=== PATIENT | male | born 1945 | race Caucasian/White ===

== ENCOUNTER 2021-08-22 19:17 | Inpatient (IN) | payer MEDICARE, SELFPAY ==
[2021-08-22 19:38] VITALS: BP 158/82; PULSE 93; RESP 16; TEMP 36.8; O2SAT 94
--- NOTE | 2021-08-22 21:33 | ECG_ITS ---
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 Measurements Intervals [place] Rate: 72 P: 60 [place]: 193 QRS: -33 QRSD: 84 T: 46 QT: 373 QTc: 409 Interpretive Statements SINUS RHYTHM LEFT AXIS DEVIATION [QRS AXIS < -30] POSSIBLE RIGHT VENTRICULAR CONDUCTION DELAY [RSR (QR) IN V1/V2] No previous ECG available for comparison Electronically Signed On 08-23-2021 12:25:37 CDT by Jaime Carlos M.D. [id number]
--- NOTE | 2021-08-22 21:33 | XRR_ITS ---
PROCEDURE INFORMATION: Exam: XR Chest Exam date and time: 08/22/2021 9:48 PM Age: 76 years old Clinical indication: Angina; Additional info: Cp TECHNIQUE: Imaging protocol: Radiologic exam of the chest. Views: 1 view. COMPARISON: CR XR abdomen min 2V [id number] 02/05/2020 12:15 PM FINDINGS: Lungs: Calcified pulmonary nodule/nodules, consistent with prior granulomatous disease. Pleural spaces: Unremarkable. No pleural effusion. No pneumothorax. Heart/Mediastinum: Calcified lymph nodes are present, secondary to prior granulomatous disease. There is mild cardiomegaly. Bones/joints: Unremarkable. XR/XR chest 1V portable [id number] IMPRESSION: 1. Mild cardiomegaly. 2. No acute disease.
[2021-08-22 21:36] VITALS: BP 150/87; PULSE 79; RESP 18; O2SAT 93
[2021-08-22 21:38] LABS: Basophils # 0.1 10^3/uL (0.0-0.1); Basophils % 0.5 %; Eosinophils # 0.1 10^3/uL (0.0-0.8); Eosinophils % 1.2 %; Hematocrit 48.4 % (42.0-52.0); Hemoglobin 15.6 g/dL (11.7-16.6); Lymphocytes # 0.9 10^3/uL (0.8-4.8); Lymphocytes % 8.7 %; Mean Corpuscular HGB Conc 32.2 g/dL (30.0-36.0); Mean Corpuscular Hemoglobin 30.8 pg (28.0-34.0); Mean Corpuscular Volume 95.7 fl (80-94); Mean Platelet Volume 10.7 fL (7.4-10.4); Monocytes # 0.6 10^3/uL (0.2-0.9); Neutrophils # 8.82 10^3/uL (1.8-7.7); Neutrophils % 83.1 %; Nucleated Red Blood Cells % 0 %; Platelet Count 208 10^3/cmm (130-400); Red Blood Count 5.06 10^6/uL (4.1-5.3); Red Cell Distribution Width 13.7 % (12.1-15.1); White Blood Count 10.6 10^3/uL (4.0-10.0)
[2021-08-22 21:51] LABS: Troponin(5th) Baseline 75 ng/L (0-15)
[2021-08-22 21:54] LABS: Alanine Aminotransferase 17 U/L (0-41); Albumin Level 4.7 g/dL (3.5-5.2); Alkaline Phosphatase 100 IU/L (40-130); Anion Gap 19.3 (5-19); Aspartate Amino Transferase 24 U/L (0-40); Blood Urea Nitrogen 18 mg/dL (8-23); Calcium 9.1 mg/dL (8.5-10.5); Carbon Dioxide 23 mmol/L (22-29); Chloride 103 mmol/L (98-107); Globulin 3.5 g/dL (1.3-4.6); Glucose 102 mg/dL (65-115); Osmolality Calculated 294 mOsm/kg (285-295); Potassium 4.3 mmol/L (3.5-5.1); Sodium 141 mmol/L (136-145); Total Bilirubin 1.5 mg/dL (0.15-1.2); Total Protein 8.2 g/dL (6.6-8.7)
[2021-08-22 22:08] LABS: Troponin 5 2HR Delta 55.1 ABS# (0-10)
[2021-08-22 22:08] LABS: Creatine Phosphokinase 248 U/L (39-308); NT Pro B Type Natriuretic Pept 199 pg/mL (0-450)
[2021-08-22 22:09] LABS: Troponin 5 2HR 130.1 ng/L (0-15)
--- NOTE | 2021-08-22 22:11 | PC.NURSE ---
EKG done at 2155 and shown to ER doctor
[2021-08-22 23:10] VITALS: BP 137/80; PULSE 67; RESP 16; O2SAT 97
[2021-08-22] MEDS: nitroglycerin 1 gm/inch oint Pkt 1 INCH TOPICAL (23:19)
[2021-08-22] MEDS: enoxaparin 100 mg/mL Syringe SUBCUT (23:19)
[2021-08-22] MEDS: clopidogrel 300 mg Tablet PO (23:19)
[2021-08-22] MEDS: aspirin 325 mg Tablet PO (23:19)
[2021-08-22 23:28] VITALS: BP 137/80; PULSE 68; RESP 20; O2SAT 96
--- NOTE | 2021-08-22 23:33 | ECG_ITS ---
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 Measurements Intervals [place] Rate: 64 P: 65 [place]: 198 QRS: -29 QRSD: 89 T: 41 QT: 413 QTc: 429 Interpretive Statements SINUS RHYTHM BORDERLINE LEFT AXIS DEVIATION [QRS AXIS < -20] Compared to ECG 08/22/2021 21:53:41 No significant changes Electronically Signed On 08-23-2021 12:35:43 CDT by Jaime Carlos M.D. [id number]
[2021-08-22 23:43] VITALS: PULSE 78; RESP 18
[2021-08-22 23:45] VITALS: BP 144/76; PULSE 81; RESP 17; TEMP 36.6; O2SAT 86
[2021-08-23] VITALS (55 sets, daily range): BP systolic 87–166; BP diastolic 52–106; PULSE 51–93; RESP 10–24; TEMP 36.2–36.5; O2SAT 87–100; BMI 33.5
--- NOTE | 2021-08-23 00:45 | P.HP_ITS ---
Providers/Chief Complaint Admitting Physician: Jackie Carmichael MD Primary Care Provider: Reed Spencer MD Chief Complaint: chest pain/high bp & heart rate History of Present Illness Jeff Johnson is a 76 year old male without known significant comorbidities who presents to the hospital today with chest pain. Patient states that around 6:30 PM this evening, he was working with his horses and was coming back to his car which was parked 200 yards away when he suddenly started to experience central chest pain. The pain lasted approximately 10 minutes. It was 5 out of 10 on intensity. Relieved by resting. Nonradiating. Patient has never experienced similar symptoms in the past. Denies any associated dyspnea, palpitations, syncope, diaphoresis, nausea or vomiting. He has no known past cardiac history. No recent history of prolonged travel. No past history of DVT or PE. He checked his blood pressure at home soon after the events and was noted to be elevated at 180/100 mmHg, trended back to normal after resting. Patient endorses that over the past several weeks he has noted that his exercise capacity has reduced. He states he feels winded and somewhat short of breath with less than usual activity. Denies orthopnea or PND.He has not noticed any lower extremity edema. Denies any past history of COPD. He is a non-smoker. Review of systems negative for any fever, URI symptoms, nausea vomiting or diarrhea. He was noted to have elevated troponin with a 2-hour delta at 55 and is being admitted to the hospital for evaluation of NSTEMI. Chest pain is currently resolved. Review of Systems General: Reports: 10 or more systems reviewed and unremarkable except in HPI and below Const: Denies: fever(s), chills or body aches Eyes: Denies: change in vision, blurry vision or photophobia ENMT: Reports: hoarseness; Denies: throat pain, enlarged tonsils, odynophagia or nasal congestion Card: Reports: chest pain and dyspnea on exertion; Denies: palpitations, irregular heart rhythm, edema, swelling of feet/ankles, lightheadedness, pre-syncope or orthopnea Resp: Denies: dyspnea, productive cough, non-productive cough, wheezing, st ridor, pain on inspiration, change in phlegm color, hemoptysis or chest congestion GI: Denies: abdominal pain, nausea, vomiting, hematemesis, coffee ground emesis, dysphagia, heartburn, diarrhea, constipation, GI cramping, change in stool character, hematochezia or melena : Denies: flank pain, dysuria, urinary frequency, urinary urgency, urinary hesitancy or hematuria Musc: Denies: neck pain, back pain, extremity pain, joint swelling, joint warmth or deformity Neuro: Denies: headache(s), numbness in extremities, weakness in extremities, sensory changes, difficulty walking, frequent falls, dizziness, vertigo, behavioral changes, Slurred speech present or seizure-like activity Psych: Denies: anxiety, depression, suicidal ideation or homicidal ideation Endo: Denies: polyuria, polydipsia, tired all the time, cold intolerance or hot flashes Kulwant/Lymph: Denies: easy bruising or easy bleeding Medications/Allergies Allergies Allergy/AdvReac Type Severity Reaction Status Date / Time No Known Allergies Allergy Verified 08/22/21 19:41 PFSH Acute PFSH: Family History (Updated 08/23/21 @ 00:51 by Jackie Carmichael MD) Other CAD (coronary artery disease) Social History (Updated 08/23/21 @ 00:51 by Jackie Carmichael MD) Smoking and tobacco status: never smoked Alcohol intake: never Substance/Drug Use: never Vitals/I&O/Wt Last Vital Signs Temp 98.3 F 08/22/21 19:38 Pulse 68 08/22/21 23:28 Resp 20 H 08/22/21 23:28 BP 137/80 08/22/21 23:28 Pulse Ox 96 08/22/21 23:28 Weight last 48 hrs Weight 108.862 kg Physical Exam Narrative: General: No acute distress, AO x3 HEENT: PERRLA, pupils bilaterally equal and reactive, pallors not present Chest: Normal vesicular breath sounds, no added sounds, equal good air entry bilaterally CVS: S1-S2 regular, no murmurs, no tachycardia, no gallops, no rubs Abdomen: Soft, nontender, no organomegaly, bowel sounds present Neuro: No focal deficits, no facial deformity, AO x3, power 5/5 in all limbs Extremities: Right ankle appears to be more swollen than the left side, patient states this is related to an ankle injury several years ago and has been unchanged recently. Data : 08/22/21 19:30 08/22/21 19:30 A&P Assessment and plan (1) NSTEMI (non-ST elevated myocardial infarction): Admit as inpatient to CSU. Patient's current EKG without any acute ST-T wave changes. Baseline troponin at 75, trended up to 130 at 2 hours with a delta of 55.1 which rules in ACS. We will continue to trend at 6 hours. He has received aspirin 325 mg p.o., clopidogrel 300 mg p.o. and Lovenox 1 mg/kg stat dose in the emergency room. Will continue aspirin 81 mg p.o. daily and Lovenox 1 mg/kg every 12 hours. Add atorvastatin 40 mg p.o. daily Check lipid panel and HbA1c Cardiology consult in view of NSTEMI N.p.o. except sips and chips after midnight in case of angiogram Echocardiogram ordered Chest x-ray without any acute abnormalities. BNP within range Alternate differentials include PE given that patient has a new oxygen requirement of 2 L/min at this time, will screen with a D-dimer. Less suspiciou s that symptoms from a PE given lack of antecedent risk factors, no dyspnea at this time, and pain relieved. 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
--- NOTE | 2021-08-23 00:45 | USCV_ITS ---
Jeff Johnson Age: 76 Gender: M : 1945 Exam Date: 08/23/2021 07:17 Ordering Phys: Jackie Carmichael MD Technologist: LUCIO Exam Location: [facility] Indication: NSTEMI BP: 129 / 72 HR: 57 Rhythm: Sinus Technical Quality: Suboptimal MEASUREMENTS (Male / Female) Normal Values 2D ECHO LV Diastolic Diameter PLAX 5.3 cm 4.2 - 5.9 / 3.9 - 5.3 cm LV Systolic Diameter PLAX 3.2 cm IVS Diastolic Thickness 1.1 cm 0.6 - 1.0 / 0.6 - 0.9 cm IVS Systolic Thickness 1.7 cm LVPW Diastolic Thickness 1.3 cm 0.6 - 1.0 / 0.6 - 0.9 cm LVPW Systolic Thickness 1.7 cm LVOT Diameter 2.0 cm LV Ejection Fraction 2D Teich 71.2 % LV Ejection Fraction MOD 2C 62.5 % LV Ejection Fraction 2C AL 61.8 % LA Diameter 2.9 cm LA Width 3.8 cm LA Height 3.7 cm RA Width 3.0 cm RA Height 4.1 cm Aorta at Sinotubular Diameter 2.3 cm IVC Diameter 2.0 cm M-MODE Aortic Annulus Diameter 3.1 cm LA Ao Ratio MM 1.0 MV E Point Septal Separation 1.3 cm DOPPLER AV Peak Velocity 153.0 cm/s LVOT Peak Velocity 81.0 cm/s AV Area Cont Eq vti 2.0 cm squared AV Area Cont Eq pk 1.7 cm squared MV Peak Velocity 100.0 cm/s MV Area PHT 3.0 cm squared Mitral E to A Ratio 0.8 MV E' Velocity 43.0 cm/s Mitral E to MV E' Ratio 10.1 Mitral E to LV E' Lateral Ratio 9.7 Mitral E to LV E' Septal Ratio 10.5 TR Peak Velocity 147.3 cm/s TR Peak Gradient 8.7 mmHg TR Mean Velocity 98.7 cm/s TR Mean Gradient 4.4 mmHg TR Velocity Time Integral 36.2 cm TV Peak E Velocity 46.0 cm/s Right Atrial Pressure 3.0 mmHg Pulmonary Artery Systolic Pressu 11.7 mmHg FINDINGS Left Ventricle Intravenous echo contrast was used.normal left ventricular size, systolic function and wall thickness, with no regional wall motion abnormalities. Left ventricular ejection fraction is estimated at 60 %. Grade I/IV diastolic dysfunction (abnormal relaxation filling pattern), normal to mildly elevated filling pressures. Right Ventricle Normal right ventricular size and systolic function. Normal right ventricular systolic pressure. Right Atrium The right atrium is normal in size. Left Atrium The left atrium is normal in size. Mitral Valve Structurally normal mitral valve without significant stenosis or prolapse. There is no mitral regurgitation. Aortic Valve Structurally normal aortic valve without significant sclerosis or stenosis. There is no aortic regurgitation. Tricuspid Valve Structurally normal tricuspid valve without significant stenosis or regurgitation. Pulmonary artery systolic pressure is normal. Pulmonic Valve Pulmonic valve not well visualized. Pericardium Normal pericardium without effusion. Aorta Normal ascending aorta dimension. IVC Inferior vena cava not visualized. CONCLUSIONS Intravenous echo contrast was used.normal left ventricular size, systolic function and wall thickness, with no regional wall motion abnormalities. Left ventricular ejection fraction is estimated at 60 %. Grade I/IV diastolic dysfunction (abnormal relaxation filling pattern), normal to mildly elevated filling pressures. There are no prior echocardiogram studies to compare. Dr. Jaime Carlos MD (Electronically Signed) Final Date: 23 August 2021 10:22 S
[2021-08-23 01:51] LABS: Chol HDL Ratio 3.31 mg/dL (1.0-5.00); Cholesterol 116 mg/dL (0-200); HDL Cholesterol 35 mg/dL (60-100); LDL Cholesterol Calculated 65 mg/dL (50-129); LDL HDL Ratio 1.86 RATIO (0.00-3.22); Triglycerides 82 mg/dL (0-150)
[2021-08-23 01:52] LABS: D Dimer 9.45 ug/mIFEU (0-0.59); Estmated Average Glucose 108; Hemoglobin A1C 5.4 % (4.0-6.0); Troponin 5 6HR 117.7 ng/L (0-15)
[2021-08-23 01:53] LABS: Troponin 5 6HR Delta 42.7 ng/L (0-12)
[2021-08-23] MEDS: atorvastatin 40 mg Tablet PO (02:16)
--- NOTE | 2021-08-23 03:33 | ECG_ITS ---
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 Measurements Intervals [place] Rate: 55 P: 61 [place]: 213 QRS: -25 QRSD: 91 T: 32 QT: 447 QTc: 431 Interpretive Statements SINUS BRADYCARDIA WITH FIRST DEGREE AV BLOCK BORDERLINE LEFT AXIS DEVIATION [QRS AXIS < -20] Compared to ECG 08/23/2021 00:41:54 First degree AV block now present Sinus rhythm no longer present Electronically Signed On 08-23-2021 12:36:31 CDT by Jaime Carlos M.D. [id number]
[2021-08-23] MEDS: perflutren protein-a microsphr 0.22 mg/mL SDV 3 mL IV (07:55)
[2021-08-23] MEDS: aspirin 81 mg EC Tablet PO (08:18)
[2021-08-23] MEDS: pantoprazole DR 40 mg Tablet PO (08:18)
--- NOTE | 2021-08-23 09:06 | PM.CONSULT ---
Providers/Reason For Consult Consulting Physician/Specialty*: Cardiovascular medicine Reason for Consult*: Non-ST segment elevation MT Requesting Physician: Hospitalist Attending Physician: Clifton Apodaca MD Primary Care Provider: Reed Spencer MD History of Present Illness History of Present Illness Jeff Johnson is a 76 year old male who has been healthy. No past medical history. Yesterday around 6:30 in the evening he was out working with his horses. On his way back to his truck he was walking. The distance was 100 yards or so. He had the sudden onset of shortness of breath and discomfort in his chest. He went back to the house took a shower. Over time the pain lessened. When he spoke to his they were suspicious enough that he came to the hospital. His EKGs have been unremarkable. His creatinine is 1.3. His initial troponin was 75. The second was 130 and the third 113. His chest x-ray has been negative. He really does not have much past medical history at all. He has never been a smoker. He has no other risk factors. Review of Systems Narrative: His review of systems is negative. Medications/Allergies Home Medications Medication Instructions Recorded Confirmed Last Taken Type No Known Home Medications 08/23/21 08/23/21 Unknown History Allergies Allergy/AdvReac Type Severity Reaction Status Date / Time No Known Allergies Allergy Verified 08/23/21 09:01 Current Medications Generic Name Dose Route Start Last Admin Trade Name Maximq PRN Reason Stop Dose Admin Aspirin 81 mg 08/23/21 09:00 08/23/21 08:18 Aspirin 81 Mg Ec Tablet PO 81 mg DAILY ENOC Administration Atorvastatin Calcium 40 mg 08/23/21 00:35 08/23/21 02:16 Atorvastatin 40 Mg Tablet PO 40 mg BEDTIME ENOC Administration Pantoprazole Sodium 40 mg 08/23/21 09:00 08/23/21 08:[address] 40 Mg Tablet PO 40 mg DAILY ENOC Administration PFSH Acute PFSH: Family History (Updated 08/23/21 @ 00:51 by Jackie Carmichael MD) Other CAD (coronary artery disease) Social History (Updated 08/23/21 @ 00:51 by Jackie Carmichael MD) Smoking and tobacco status: never smoked Alcohol intake: never Substance/Drug Use: never Vitals/I&O/Wt Last Vital Signs Temp 97.2 F L 08/23/21 08:00 Pulse 70 08/23/21 08:00 Resp 20 H 08/23/21 08:00 BP 121/70 08/23/21 08:00 Pulse Ox 93 08/23/21 08:00 08/22/21 08/23/21 08/23/21 22:59 06:59 14:59 Intake Total 90 / 90 Output Total 400 / 400 Balance 90 / 90 -400 / -400 Weight last 48 hrs Weight 246 lb 14.4 oz Weight 246 lb 14.4 oz Weight 240 lb Physical Exam Narrative: GENERAL: In general he is comfortable at rest without any pain HEENT: Exam within normal limits. NECK: Supple without jugular vein distention. The carotid upstroke is normal without bruits. BACK: Exam normal. LUNGS: Clear. HEART: Regular rate and rhythm. ABDOMEN: Benign without organomegaly or tenderness. EXTREMITIES: No edema. NEUROLOGIC: Exam normal. SKIN: Unremarkable. Data : 08/22/21 19:30 08/22/21 19:30 A&P Assessment and plan (1) NSTEMI (non-ST elevated myocardial infarction): Status: Acute Plan Coronary angiography this morning. I spoke to him about the risks and benefits. I also spoke to his . I spoke to him about the radial approach versus the groin approach. We will proceed soon. Consult Attestations Medical Necessity Statement: Hospitalization due to non-ST segment elevation MT. 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
[2021-08-23] MEDS: sodium chloride 0.9% 1,000 ML 50 ML IV (09:20)
[2021-08-23] MEDS: diphenhydrAMINE 50 mg Capsule PO (09:21)
--- NOTE | 2021-08-23 09:50 | PC.NURSE ---
Patient will be going for an angiogram this morning. NUrse has marked pulses, shaved bilateral groin and right wrist. Benadryl given, IV fluids started. Consent signed and in physical chart
--- NOTE | 2021-08-23 09:54 | XACV_ITS ---
Exam Room: [facility] Ht: 183 cm Wt: 111 kg BSA: 2.41 m2 Gender: Male : 1945 Exam Priority: Routine Procedure(s): Procedure Description: Diagnostic procedure Procedure Description: Left Heart Catheterization Procedure Description: Left ventriculography Procedure Description: Coronary Angiography Diagnostic Cath Status: Urgent Diagnostic Findings * Patient presented with typical angina and shortness of breath while being outside working in the heat. EKG unremarkable. Troponins positive. Patient has a left dominant coronary system with a very large ramus intermedius artery. His right coronary artery is a small nondominant vessel. His coronary arteries are normal. * This is demand ischemia from being overheated and perhaps some spasm involved. I recommend low-dose amlodipine. Conclusions 1. Normal coronary arteries. Left dominant system. Normal left ventriculography. Posterior mitral valve leaflet prolapse. Recommendations * Low-dose amlodipine. Interventional RX Recommendation: none Diagnostic RX Recommendation: medical therapy and/or counseling Anticoagulation: Heparin Ventriculography Ejection Fraction: 65.0 % Left Ventriculography Findings: * Prolapse of the posterior mitral valve leaflet. No significant mitral regurgitation. Pressures Phase:Rest AO : 92 / 52 ( 68 ) @ 11:56:00 AM 90 / 55 ( 71 ) @ 11:58:00 AM 121 / 61 ( 85 ) @ 12:04:00 PM 123 / 62 ( 85 ) @ 12:04:00 PM LV : 130 / -10 / 11 @ 12:03:00 PM 132 / -10 / 12 @ 12:03:00 PM 131 / -9 / 13 @ 12:04:00 PM Valves Phase:DefaultPhase AV : 9.0 @ 11:10:38 AM AV Mean Gradient: 7.0 @ 11:10:38 AM Clinical Evaluation EBL: 5mL-10mL Procedural Details Procedure Consent Obtained. Pre-Procedure Time Out. Identified patient by full name and date of as verbalized by the patient/guarantor. Does the consent match the physician's order: Yes. Accurate & Complete Informed Consent: Yes. Inpatient/Outpatient History & Physical on Chart: Yes. If H&P is completed, is and addenduem needed: N/A; If yes, is the addendum complete: N/A. Visualize and Verify Site with Patient/Guarantor: N/A. Relevant Radiology Images available: N/A. The risks, benefits, and alternatives of sedation and/or procedure were discussed by physician. The patient agrees to continue. Procedure started. [facility] Clinical Fraility Score: 3: Managing Well. Health Professor Indications:NSTEMI. Chest Pain Symptom Assessment: Typical Angina Symptoms. Correct patient, site and procedure confirmed by cath team. Current diagnosis: NSTEMI. PERRLA. Strong, equal hand director of compliance bilaterally. Lungs clear x 5 lobes. IV Site on Arrival: 20 gauge in the left forearm. IV Fluids: 0.9% NaCl at KVO. 100 mL infused prior to labor crew supervisor. Pre Procedural Pulses: bilateral dorsalis pedis was 2+. Oxygen started at 2liters/min via nasal canula. right radial was prepped with chloroprep then draped in the usual sterile fashion. Pre Procedural Pulses: right radial was 2+. right groin was prepped with chloroprep then draped in the usual sterile fashion. Baseline sample Acquired. HR: 57 BPM. Physician notified. Physician arrived. Physician scrubbed in. Admit Source: In Patient. Immediate Pre-Procedure Time Out. Correct Patient: Yes; Correct Procedure: Yes; Correct Site: Yes; Correct Patient Position: Yes; Correct Supplies: Yes; Dried Flammable Prep: Yes; Blood Products Available: N/A;. Lidocaine 1% infiltrated to the right radial. Arterial access obtained. A 5 moldovan TIG catheter in over wire. Catheter redirected to the RCA. Multiple views taken of right coronary artery. Multiple views taken of left coronary artery. Catheter removed over the standard wire. A 5 moldovan Angled Pig catheter in over wire. EDP Sample taken: LV 130/-11,11; HR: 56 BPM; SpO2: 92%. LV gram performed in MCGEE @ 10 mL/second for a total of 30 mL. EDP Sample taken: LV 132/-11,12; HR: 58 BPM; SpO2: 93%. Pullback taken: LV 131/-10,13; AO 121/61(85); Mean: 7mmHg, Peak to Peak: 9mmHg, SEP: 15sec/min; HR: 57 BPM; SpO2: 92%. A TR Band was successful obtaining hemostatsis at the Right Radial artery insertion site. Catheter out. Patient's family updated. Post Procedure: Pulses reassessed and unchanged. PERRLA. Strong, equal hand director of compliance bilaterally. No VTE prophylaxis required. Medication's Wasted: Heparin = 1000 u. Medication's Wasted: Nitro = 49.8 mg. Medication's Wasted: Lidocaine 1% = 3 mL. Total IV fluids: 50 mL. PCI Indication: NSTE. Complications: none. Estimated blood loss: 5mL-10mL. Responsiveness - Normal response to verbal stimuli; alert and oriented, PERRLA. Airway - Unaffected, no intervention required; spontaneous ventilation. Circulation: W/N/L, pulses unchanged. Nausea/Vomiting: No. Procedure completed. Patient transferred by wheelchair to ICU. Post-op diagnosis: Normal Coronaries. Vital chart was stopped. Access Site Site: Right Radial artery Sheath Size: 6 Fr Hemostasis Method: TR Band Hemostasis Success: Successful Procedure Medications Start: 10:54 AM Stop: 10:54 AM Medication: Nitrogylcerin Amount: 200 mcg Route: I.A. Start: 10:59 AM Stop: 10:59 AM Medication: Heparin Amount: 5000 units Route: I.V. Start: 11:00 AM Stop: 11:00 AM Medication: Versed Amount: 1 mg Route: I.V. Start: 11:00 AM Stop: 11:00 AM Medication: Fentanyl Amount: 50 mcg I, the attending physician, have reviewed and verified all procedure medications. Yes, all medications given per verbal order History/Risk Factors Hypertension: No Dyslipidemia: No Peripheral Arterial Disease (PAD): No Myocardial Infarction (LA): No Obesity: Yes Renal Disease: No Tobacco Use: Never Prior Interventions PCI: No CABG: No Valve Surgery: No Report Signatures Finalized by Dr. Jaime Carlos MD on 08/23/2021 11:25 AM
[2021-08-23 10:22] LABS: Glucose Point of Care 116 mg/dL (70-110)
--- NOTE | 2021-08-23 11:18 | PM.MISC ---
Miscellaneous Note Note: Patient underwent coronary angiography. He has normal coronaries and normal left ventricular function. This was probably related to overheating and possibly coronary spasm causing the elevated troponin and the symptoms. As long as his right radial artery area is under control he may go home later this afternoon. I would probably start him on some amlodipine 2.5 or 5 mg daily and encourage him to stay hydrated while he is outside. He should follow-up in about a week or 10 days with our nurse practitioner, Melissa Piedra, in the office. This should be for a basic metabolic panel and to check his right radial artery site.
--- NOTE | 2021-08-23 15:52 | P.DS_ITS ---
Discharge Providers Date of Admission: 08/22/21 22:37 Date of Discharge: August 23, 2021 Attending Provider at Admission: Jackie Carmichael MD Attending Provider at Discharge: Clifton Apodaca MD Primary Care Provider: Reed Spencer MD Diagnoses at Discharge Discharge Diagnosis (1) NSTEMI (non-ST elevated myocardial infarction): Status: Acute (2) Hypertension: Status: Acute (3) Coronary vasospasm: Status: Acute (4) Normal coronary angiogram: Status: Acute Permanent problem details: Cardiac angiogram done on 08/23/2021 Reason for Visit Reason for Visit: chest pain/high bp & heart rate Hospital Course Hospital Course Jeff Johnson is a 76 year old male without known significant comorbidities who presents to the hospital today with chest pain.? Patient states that around 6:30 PM this evening, he was working with his horses and was coming back to his car which was parked 200 yards away when he suddenly started to experience central chest pain.? The pain lasted approximately 10 minutes.? It was 5 out of 10 on intensity.? Relieved by resting.? Nonradiating. Patient has never experienced similar symptoms in the past.? Denies any associated dyspnea, palpitations, syncope, diaphoresis, nausea or vomiting.? He has no known past cardiac history.? No recent history of prolonged travel.? No past history of DVT or PE. He checked his blood pressure at home soon after the events and was noted to be elevated at 180/100 mmHg, trended back to normal after resting.? Patient endor ses that over the past several weeks he has noted that his exercise capacity has reduced.? He states he feels winded and somewhat short of breath with less than usual activity.? Denies orthopnea or PND.He has not noticed any lower extremity edema.? Denies any past history of COPD.? He is a non-smoker.? Review of systems negative for any fever, URI symptoms, nausea vomiting or diarrhea. He was noted to have elevated troponin with a 2-hour delta at 55 and is being admitted to the hospital for evaluation of NSTEMI. Patient was admitted to cardiac stepdown unit. Cardiology was consulted. He was started on gentle IV hydration. He underwent cardiac angiogram on 08/23 and he was found to have normal coronaries. His daily symptoms are most likely secondary to coronary vasospasm caused by dehydration. He has been discharged hemodynamically stable condition on amlodipine 5 mg daily, baby aspirin 81 mg daily, atorvastatin 10 mg daily with advised to make sure he maintains his hydration by drinking around 2 L of fluid daily. He is advised to follow-up with his primary care provider within the next 10 days and with Melissa Piedra, Cardiology nurse practitioner within next 1 week. Physical Exam Narrative: General: No acute distress, AO x3 HEENT: PERRLA, pupils bilaterally equal and reactive, pallors not present Chest: Normal vesicular breath sounds, no added sounds, equal good air entry bilaterally CVS: S1-S2 regular, no murmurs, no tachycardia, no gallops, no rubs Abdomen: Soft, nontender, no organomegaly, bowel sounds present Neuro: No focal deficits, no facial deformity, AO x3, power 5/5 in all limbs Extremities: Right ankle appears to be more swollen than the left side, patient states this is related to an ankle injury several years ago and has been unchanged recently. 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 echo wo/w contrast [id number] Routine Ultrasound 08/23/21 00:45 Completed Pending at discharge Category Date Time Status Complete Blood Count w/Auto AM LABS Lab 08/24/21 04:00 Ordered Comprehensive Metabolic Panel AM LABS Lab 08/24/21 04:00 Ordered Radiology Impressions Chest X-Ray 08/22/21 21:33 IMPRESSION: 1. Mild cardiomegaly. 2. No acute disease. Echocardiogram: CONCLUSIONS ?Intravenous echo contrast was used.normal left ventricular size, ?systolic function and wall thickness, with no regional wall ?motion abnormalities. Left ventricular ejection fraction is ?estimated at 60 %. Grade I/IV diastolic dysfunction (abnormal ?relaxation filling pattern), normal to mildly elevated filling ?pressures. ?There are no prior echocardiogram studies to compare. ?Dr. Jaime Carlos MD ?(Electronically Signed) ?Final Date:? ? ? 23 August 2021 Laboratory Results WBC 10.6 10^3/uL (4.0-10.0) H 08/22/21 19:30 RBC 5.06 10^6/uL (4.1-5.3) 08/22/21 19: Hgb 15.6 g/dL (11.7-16.6) 08/22/21: Hct 48.4 % (42.0-52.0) 08/22/21 19: MCV 95.7 fl (80-94) H 08/22/21 19: MCH 30.8 pg (28.0-34.0) 08/22/21: MCHC 32.2 g/dL (30.0-36.0) 08/22/21: RDW 13.7 % (12.1-15.1) 08/22/21: Plt Count 208 10^3/cmm (130-400) 08/22/21: MPV 10.7 fL (7.4-10.4) H 08/22/21 19: Neut % (Auto) 83.1 % 08/22/21: Lymph % (Auto) 8.7 % 08/22/21: [place] % (Auto) 6.0 % 08/22/21: Eos % (Auto) 1.2 % 08/22/21: Baso % (Auto) 0.5 % 08/22/21: Neut # (Auto) 8.82 10^3/uL (1.8-7.7) H 08/22/21: Lymph # (Auto) 0.9 10^3/uL (0.8-4.8) 08/22/21: [place] # (Auto) 0.6 10^3/uL (0.2-0.9) 08/22/21: Eos # (Auto) 0.1 10^3/uL (0.0-0.8) 08/22/21: Baso # (Auto) 0.1 10^3/uL (0.0-0.1) 08/22/21: Nucleated RBC % (auto) 0 % 08/22/21 Nucleated RBCs # 0.0 /100WBC 08/22/21: D-Dimer 9.45 ug/mIFEU (0-0.59) H 08/23/21 01:20 Sodium 141 mmol/L (136-145) 08/22/21 19:30 Potassium 4.3 mmol/L (3.5-5.1) 08/22/21 19:30 Chloride 103 mmol/L (98-107) 08/22/21 19:30 Carbon Dioxide 23 mmol/L (22-29) 08/22/21 19:30 Anion Gap 19.3 (5-19) H 08/22/21 19:30 BUN 18 mg/dL (8-23) 08/22/21 19:30 Creatinine 1.3 mg/dL (0.7-1.2) H 08/22/21 19:30 GFR Calculation Not Reportable 08/22/21 19:30 Glucose 102 mg/dL (65-115) 08/22/21 19:30 POC Glucose 116 mg/dL (70-110) H 08/23/21 10:19 Estimat Average Glucose 108 08/23/21 01:20 Hemoglobin A1c 5.4 % (4.0-6.0) 08/23/21 01:20 Calculated Osmolality 294 mOsm/kg (285-295) 08/22/21 19:30 Calcium 9.1 mg/dL (8.5-10.5) 08/22/21 19:30 Total Bilirubin 1.5 mg/dL (0.15-1.2) H 08/22/21 19:30 AST 24 U/L (0-40) 08/22/21 19:30 ALT 17 U/L (0-41) 08/22/21 19:30 Alkaline Phosphatase 100 IU/L (40-130) 08/22/21 19:30 Creatine Kinase 248 U/L (39-308) 08/22/21 19:30 Troponin T Baseline 75 ng/L (0-15) H 08/22/21 19:30 Troponin T 120 Minute 130.1 ng/L (0-15) H 08/22/21 21:35 Delta Troponin T 55.1 ABS# (0-10) H* 08/22/21 21:35 Troponin T Hi Sens 6Hr 117.7 ng/L (0-15) H 08/23/21 01:20 Troponin T Hi Sens 6Hr Delta 42.7 ng/L (0-12) H* 08/23/21 01:20 NT-Pro-B Natriuret Pep 199 pg/mL (0-450) 08/22/21 19:30 Total Protein 8.2 g/dL (6.6-8.7) 08/22/21 19:30 Albumin 4.7 g/dL (3.5-5.2) 08/22/21 19:30 Globulin 3.5 g/dL (1.3-4.6) 08/22/21 19:30 Triglycerides 82 mg/dL (0-150) 08/23/21 01:20 Cholesterol 116 mg/dL (0-200) 08/23/21 01:20 LDL Cholesterol, Calc 65 mg/dL (50-129) 08/23/21 01:20 HDL Cholesterol 35 mg/dL (60-100) L 08/23/21 01:20 LDL/HDL Ratio 1.86 RATIO (0.00-3.22) 08/23/21 01:20 Cholesterol/HDL Ratio 3.31 mg/dL (1.0-5.00) 08/23/21 01:20 Vitals Last Vital Signs Temp 97.4 F L 08/23/21 13:45 Pulse 56 L 08/23/21 13:55 Resp 16 08/23/21 13:45 BP 134/71 08/23/21 13:45 Pulse Ox 99 08/23/21 13:45 Discharge Plan Discharge Patient Disposition: Home Condition: Stable Prescriptions: New aspirin 81 mg Tablet,Delayed Release (Dr/Ec) 81 mg PO DAILY Qty: 30 0RF amlodipine 5 mg tablet 5 mg PO DAILY Qty: 30 0RF atorvastatin 10 mg tablet 10 mg PO DAILY Qty: 30 0RF No Action No Known Home Medications 0RF Discharge Orders: Discharge Order (Routine); Ordered 08/23/21 Ordered By: Clifton Apodaca Referrals: Melissa Piedra FNP [Nurse Practitioner] - 7-10 days Reed Spencer MD [Primary Care Provider] - 7-10 days Discharge Diet: Cardiac Discharge Activity: Resume usual activity and Increase activity as tolerated Patient Instructions: Opioid Safety Activity Restrictions/Additional Instructions: Please follow-up with the primary care provider and with nurse practitioner from cardiology services within next 1 week. You should have a repeat kidney functions with either your primary care provider or with cardiology services within next 1 week. Please take amlodipine 5 mg daily. Please check your blood pressures daily and maintain a blood pressure diary and follow-up with your primary care provider for further adjustment of antihypertensives if needed. Please take daily aspirin 81 mg daily going forward. Please take atorvastatin which is a cholesterol-lowering medication at a lower dose on a daily basis. You should repeat your lipid panel within next 6 months. Discharge Attestations Time Spent in Discharge Care*: greater than 30 min Specific Discharge Activities: educating patient, educating and/or supporting family/caregiver, discussing with pcp/other providers, documenting/other paper work and evaluating patient/reviewing data Status at Discharge: Cognitive status at discharge: cognitively intact , Behavioral status at discharge: cooperative , Functional status at discharge: independent ambulation , Overall status at discharge: patient is back to [facility] Quality Metrics Clinical Quality Measures [ Acute Myocardial Infaction { Clinical Trial Participant: No; Contraindication to aspirin: None; Aspirin prescribed; Contraindication to statin: None; Statin prescribed; Contraindication to PCI: Intervention not indicated;}] Coding Level of Care Code Acute g FW DC note Diagnoses NSTEMI (non-ST elevated myocardial infarction) I21.4 Hypertension I10 Coronary vasospasm I20.1 Normal coronary angiogram
--- NOTE | 2021-08-23 17:24 | PC.NURSE ---
Discharged patient. Discharge assessment completed. Removed both IVs, both intact. Medications sent to preferred pharmacy, discharge education provided. Patient taken out via wheelchair with spouse.
--- NOTE | 2021-08-25 13:54 | W.ED.CHESTPA ---
HPI - Chest Pain General: Chief Complaint: Chest Pain Stated Complaint: chest pain/high bp & heart rate Time Seen by Provider: 08/22/21 21:11 History of Present Illness: 76 year old gentleman with no prior history of coronary disease. He suddenly developed chest and epigastric discomfort after chasing horses in his pasture this afternoon. Pain lasted for 10 minutes, but he notes that he didn't feel right for about an hour. He is essentially asymptomatic at this point, although he notes he is tired. MD complaint: chest pain Pertinent past history: other Onset (ago): hour(s) Timing of current episode: constant and now resolved Prior episodes: No Onset: during exertion Pain location: substernal Pain radiation: none Severity: moderate Quality: tightness, aching and heaviness Relieving factors: nothing Exacerbating factors: nothing Associated symptoms: Reports abdominal pain (epigastric), diaphoresis and nausea; Deny dyspnea, fever(s), leg edema, palpitations or vomiting Treatment prior to arrival: aspirin Review of Systems Const: Reports: diaphoresis; Denies: fever(s) Eyes: Reports: change in vision Card: Reports: chest pain; Denies: palpitations, irregular heart rhythm or edema Resp: Denies: dyspnea GI: Reports: abdominal pain (epigastric) and nausea; Denies: vomiting Musc: Denies: neck pain Neuro: Denies: headache(s) or weakness in extremities PFS ED PFSH: Medical History Coronary vasospasm Hypertension Normal coronary angiogram Cardiac angiogram done on 08/23/2021 Family History (Updated 08/23/21 @ 00:51 by Jackie Carmichael MD) Other CAD (coronary artery disease) Social History Smoking and tobacco status: never smoked Alcohol intake: never Physical Exam Const: GENERAL APPEARANCE: cooperative; not frail appearing NUTRITIONAL APPEARANCE: overweight ORIENTATION/CONSCIOUSNESS: Yes awake HENMT: COMMON NORMALS: normocephalic, atraumatic and Normal external nose present HEAD & SCALP: normocephalic and atraumatic FACE & SINUS: normal facial exam and face symmetric NOSE: Normal external nose present Eye: COMMON NORMALS: Equal, round and reactive pupils present and EOMs intact bilaterally PUPIL: Yes Equal, round and reactive pupils present Neck/C-Spine: GENERAL: Yes trachea midline Chest: CHEST: Yes Symmetrical chest wall rise Resp: COMMON NORMALS: normal respiratory effort, No retractions, No use of accessory muscles and clear to auscultation bilaterally AUSCULTATION: clear to auscultation bilaterally Cardio: COMMON NORMALS: regular rate and regular rhythm RATE: regular rate RHYTHM: regular rhythm GI: COMMON NORMALS: Normal to inspection, nondistended, normoactive bowel sounds present and Soft to palpation PALPATION: Yes Soft to palpation Extremity: COMMON NORMALS: no pedal edema Neuro: NIDIA COMA SCALE: document GCS findings Nidia coma scale eye opening: Spontaneous Nidia coma scale verbal response: Orientated Nidia coma scale motor response: Obey commands Nidia coma scale total score: 15 Course Vital Signs: Vital signs: Vital Signs Temperature 97.6 F 08/23/21 17:01 Pulse Rate 93 08/23/21 17:01 Respiratory Rate 18 08/23/21 17:01 Blood Pressure 153/106 08/23/21 17:01 Pulse Oximetry 94 08/23/21 17:01 MDM - Chest Pain Medical Decision Making EKG reveals no acute St changes. he is in a sinus rhythm with normal access and intervals. His trop however has a significant delta at 2 hours. His pain is resolved. He'll be given Plavix, and Lovenox for treatment of non St elevation [place]. he'll be admitted. CXR is essentially negative. Cardiology was consulted from the ER, and will see the patient as well in consultation. Lab Data : 08/22/21 19:30 08/22/21 19:30 Radiology Impressions Chest X-Ray 08/22/21 21:33 IMPRESSION: 1. Mild cardiomegaly. 2. No acute disease. Laboratory Results WBC 10.6 10^3/uL (4.0-10.0) H 08/22/21 19:30 RBC 5.06 10^6/uL (4.1-5.3) 08/22/21 19:30 Hgb 15.6 g/dL (11.7-16.6) 08/22/21 19:30 Hct 48.4 % (42.0-52.0) 08/22/21 19:30 MCV 95.7 fl (80-94) H 08/22/21 19:30 MCH 30.8 pg (28.0-34.0) 08/22/21 19: MCHC 32.2 g/dL (30.0-36.0) 08/22/21: RDW 13.7 % (12.1-15.1) 08/22/21 19: Plt Count 208 10^3/cmm (130-400) 08/22/21: MPV 10.7 fL (7.4-10.4) H 08/22/21 19: Neut % (Auto) 83.1 % 08/22/21: Lymph % (Auto) 8.7 % 08/22/21: [place] % (Auto) 6.0 % 08/22/21: Eos % (Auto) 1.2 % 08/22/21: Baso % (Auto) 0.5 % 08/22/21: Neut # (Auto) 8.82 10^3/uL (1.8-7.7) H 08/22/21: Lymph # (Auto) 0.9 10^3/uL (0.8-4.8) 08/22/21: [place] # (Auto) 0.6 10^3/uL (0.2-0.9) 08/22/21: Eos # (Auto) 0.1 10^3/uL (0.0-0.8) 08/22/21: Baso # (Auto) 0.1 10^3/uL (0.0-0.1) 08/22/21: Nucleated RBC % (auto) 0 % 08/22/21: Nucleated RBCs # 0.0 /100WBC 08/22/21 19: Sodium 141 mmol/L (136-145) 08/22/21: Potassium 4.3 mmol/L (3.5-5.1) 08/22/21: Chloride 103 mmol/L (98-107) 08/22/21 19: Carbon Dioxide 23 mmol/L (22-29) 08/22/21: Anion Gap 19.3 (5-19) H 08/22/21 19: BUN 18 mg/dL (8-23) 07/01/22 19:30 Creatinine 1.3 mg/dL (0.7-1.2) H 08/22/21 19:30 GFR Calculation Not Reportable 08/22/21 19:30 Glucose 102 mg/dL (65-115) 08/22/21 19:30 Calculated Osmolality 294 mOsm/kg (285-295) 08/22/21 19:30 Calcium 9.1 mg/dL (8.5-10.5) 08/22/21 19:30 Total Bilirubin 1.5 mg/dL (0.15-1.2) H 08/22/21 19:30 AST 24 U/L (0-40) 08/22/21 19:30 ALT 17 U/L (0-41) 08/22/21 19:30 Alkaline Phosphatase 100 IU/L (40-130) 08/22/21 19:30 Creatine Kinase 248 U/L (39-308) 08/22/21 19:30 Troponin T Baseline 75 ng/L (0-15) H 08/22/21 19:30 Troponin T 120 Minute 130.1 ng/L (0-15) H 08/22/21 21:35 Delta Troponin T 55.1 ABS# (0-10) H* 08/22/21 21:35 NT-Pro-B Natriuret Pep 199 pg/mL (0-450) 08/22/21 19:30 Total Protein 8.2 g/dL (6.6-8.7) 08/22/21 19:30 Albumin 4.7 g/dL (3.5-5.2) 08/22/21 19:30 Globulin 3.5 g/dL (1.3-4.6) 08/22/21 19:30 Discharge Plan Discharge Patient Disposition: Admitted As Inpatient Admit Provider: Jackie Carmichael Clinical Impression: NSTEMI (non-ST elevated myocardial infarction) Condition: Stable Discharge Diet: Cardiac Discharge Activity: Resume usual activity and Increase activity as tolerated Coding Level of Care Code ED [employer] Consultant for Maye Solitario
== END 2021-08-23 17:00 | disposition home or self-care (01) | DRG 287 ==
LOC: ER 22:06 → ICU 23:00
PROVIDERS: Internal Medicine Cardiovascular Disease; Admitting Provider Student in an Organized Health Care Education/Training Program; Emergency Provider Emergency Medicine; PCP Family Medicine; Visit Provider Student in an Organized Health Care Education/Training Program
PROC: 4A023N7 Measurement of Cardiac Sampling and Pressure, Left Heart, Percutaneous Approach (ICD-10-PCS; principal; 2021-08-23 10:00)
DX: I20.1 Angina pectoris with documented spasm (principal); E86.0 Dehydration
CPT/HCPCS: 36415; 36416; 71045; 80053; 80061; 82550; 82962; 83036; 83880; 84484; 85025; 85378; 93005; 93452; 93458; 96360; 96372; 99152; 99153; 99285; C1769; C1887; C1894; C8929; J1644; J1650; J2250; J3010; J3490; J7030; Q0163; Q9956; Q9967

== ENCOUNTER → 2021-09-01 13:34 | Outpatient (BNVA) | payer MEDICARE, SELFPAY | PROVIDERS: PCP Family Medicine; Visit Provider Nurse Practitioner Family | DX: I25.2 Old myocardial infarction (principal); I10 Essential (primary) hypertension | CPT/HCPCS: 36415; 80048; 99214 ==

== ENCOUNTER → 2022-08-18 15:27 | Outpatient (BNVA) | payer MEDICARE, SELFPAY | PROVIDERS: PCP Family Medicine; Visit Provider Dermatology | DX: L57.0 Actinic keratosis (principal); L57.8 Other skin changes due to chronic exposure to nonionizing radiation; L81.4 Other melanin hyperpigmentation; D22.5 Melanocytic nevi of trunk; Z85.828 Personal history of other malignant neoplasm of skin | CPT/HCPCS: 17004; 99213 ==

== ENCOUNTER → 2023-02-01 08:58 | Outpatient (BNVA) | payer MEDICARE, SELFPAY | PROVIDERS: PCP Family Medicine; Visit Provider Nurse Practitioner Family | DX: L57.8 Other skin changes due to chronic exposure to nonionizing radiation (principal); L82.1 Other seborrheic keratosis; L81.4 Other melanin hyperpigmentation; L57.0 Actinic keratosis; I87.2 Venous insufficiency (chronic) (peripheral) | CPT/HCPCS: 17004; 99214 ==

== ENCOUNTER → 2023-04-13 08:17 | Outpatient (BNVA) | payer MEDICARE, SELFPAY | PROVIDERS: PCP Family Medicine; Visit Provider Nurse Practitioner Family | DX: L71.0 Perioral dermatitis (principal) | CPT/HCPCS: 17004; 99214 ==

== ENCOUNTER → 2023-07-12 08:45 | Outpatient (BNVA) | payer MEDICARE, SELFPAY | PROVIDERS: PCP Family Medicine; Visit Provider Nurse Practitioner Family | DX: L57.0 Actinic keratosis (principal); L57.8 Other skin changes due to chronic exposure to nonionizing radiation; L82.1 Other seborrheic keratosis; L81.4 Other melanin hyperpigmentation; Z85.828 Personal history of other malignant neoplasm of skin | CPT/HCPCS: 17004; 99213 ==

== ENCOUNTER → 2024-03-01 13:56 | Outpatient (BNVA) | payer MEDICARE, SELFPAY | PROVIDERS: PCP Family Medicine; Visit Provider Nurse Practitioner Family | DX: L57.8 Other skin changes due to chronic exposure to nonionizing radiation (principal); L82.1 Other seborrheic keratosis; L81.4 Other melanin hyperpigmentation; Z08 Encounter for follow-up examination after completed treatment for malignant neoplasm; Z85.828 Personal history of other malignant neoplasm of skin | CPT/HCPCS: 17004; 99214 ==

== ENCOUNTER → 2024-06-29 13:48 | Outpatient (BNVA) | payer MEDICARE, SELFPAY | PROVIDERS: PCP Family Medicine; Visit Provider Nurse Practitioner Family | DX: L92.3 Foreign body granuloma of the skin and subcutaneous tissue (principal); L57.8 Other skin changes due to chronic exposure to nonionizing radiation; L81.4 Other melanin hyperpigmentation; Z08 Encounter for follow-up examination after completed treatment for malignant neoplasm; Z85.828 Personal history of other malignant neoplasm of skin; L57.0 Actinic keratosis | CPT/HCPCS: 17004; 99213 ==

== ENCOUNTER → 2024-10-02 13:42 | Outpatient (BNVA) | payer MEDICARE, SELFPAY | PROVIDERS: PCP Family Medicine; Visit Provider Nurse Practitioner Family | DX: L57.8 Other skin changes due to chronic exposure to nonionizing radiation (principal); L81.4 Other melanin hyperpigmentation; Z08 Encounter for follow-up examination after completed treatment for malignant neoplasm; Z85.828 Personal history of other malignant neoplasm of skin; L57.0 Actinic keratosis | CPT/HCPCS: 17004; 99213 ==